=== PATIENT | male | born 1945 | race Caucasian/White ===

== ENCOUNTER → 2019-10-10 09:49 | Outpatient (BNVA) | payer BC, SELFPAY | PROVIDERS: Family Provider Family Medicine; PCP Nurse Practitioner Family; Visit Provider Urology | DX: N39.9 Disorder of urinary system, unspecified (principal); N52.1 Erectile dysfunction due to diseases classified elsewhere; N52.9 Male erectile dysfunction, unspecified; I10 Essential (primary) hypertension; E11.9 Type 2 diabetes mellitus without complications | CPT/HCPCS: 81001 ==

== ENCOUNTER → 2021-07-14 15:56 | Outpatient (BNVA) | payer MEDICARE, SELFPAY | PROVIDERS: PCP Family Medicine; Referring Provider Family Medicine; Visit Provider Podiatrist Foot & Ankle Surgery | DX: M79.671 Pain in right foot (principal); M19.071 Primary osteoarthritis, right ankle and foot | CPT/HCPCS: 73630 ==

== ENCOUNTER → 2021-12-20 13:28 | Outpatient (BNVA) | payer MEDICARE, SELFPAY | PROVIDERS: PCP Family Medicine; Visit Provider Podiatrist Foot & Ankle Surgery | DX: M79.671 Pain in right foot (principal); S90.31XA Contusion of right foot, initial encounter; E11.42 Type 2 diabetes mellitus with diabetic polyneuropathy; L60.3 Nail dystrophy; W20.8XXA Other cause of strike by thrown, projected or falling object, initial encounter | CPT/HCPCS: 73620; 99214 ==

== ENCOUNTER → 2022-02-01 15:16 | Outpatient (BNVA) | payer MEDICARE, SELFPAY | PROVIDERS: PCP Family Medicine; Visit Provider Podiatrist Foot & Ankle Surgery | DX: S90.31XD Contusion of right foot, subsequent encounter (principal); E11.42 Type 2 diabetes mellitus with diabetic polyneuropathy; L60.3 Nail dystrophy; Z79.84 Long term (current) use of oral hypoglycemic drugs; L03.039 Cellulitis of unspecified toe; Z79.4 Long term (current) use of insulin; X58.XXXD Exposure to other specified factors, subsequent encounter | CPT/HCPCS: 11730 ==

== ENCOUNTER → 2022-02-15 09:59 | Outpatient (BNVA) | payer MEDICARE, SELFPAY | PROVIDERS: PCP Family Medicine; Visit Provider Podiatrist Foot & Ankle Surgery | DX: E11.8 Type 2 diabetes mellitus with unspecified complications (principal); E11.42 Type 2 diabetes mellitus with diabetic polyneuropathy; L60.3 Nail dystrophy; L03.039 Cellulitis of unspecified toe; Z79.4 Long term (current) use of insulin; Z79.84 Long term (current) use of oral hypoglycemic drugs | CPT/HCPCS: 99214 ==

== ENCOUNTER → 2022-03-08 10:20 | Outpatient (BNVA) | payer MEDICARE, SELFPAY | PROVIDERS: PCP Family Medicine; Visit Provider Podiatrist Foot & Ankle Surgery | DX: L03.031 Cellulitis of right toe (principal); Z79.4 Long term (current) use of insulin; Z79.84 Long term (current) use of oral hypoglycemic drugs; E11.8 Type 2 diabetes mellitus with unspecified complications; E11.42 Type 2 diabetes mellitus with diabetic polyneuropathy; L60.3 Nail dystrophy | CPT/HCPCS: 99213 ==

== ENCOUNTER → 2022-07-26 15:21 | Outpatient (BNVA) | payer MEDICARE, SELFPAY | PROVIDERS: PCP Family Medicine; Visit Provider Podiatrist Foot & Ankle Surgery | DX: I73.9 Peripheral vascular disease, unspecified (principal); E11.42 Type 2 diabetes mellitus with diabetic polyneuropathy; E11.621 Type 2 diabetes mellitus with foot ulcer; L97.411 Non-pressure chronic ulcer of right heel and midfoot limited to breakdown of skin; Z79.4 Long term (current) use of insulin; Z79.84 Long term (current) use of oral hypoglycemic drugs | CPT/HCPCS: 73630; 99214 ==

== ENCOUNTER → 2022-09-07 14:02 | Outpatient (BNVA) | payer MEDICARE, SELFPAY | PROVIDERS: PCP Family Medicine; Visit Provider Podiatrist Foot & Ankle Surgery | DX: E11.621 Type 2 diabetes mellitus with foot ulcer (principal); Z79.84 Long term (current) use of oral hypoglycemic drugs; Z79.4 Long term (current) use of insulin; L97.411 Non-pressure chronic ulcer of right heel and midfoot limited to breakdown of skin; E11.42 Type 2 diabetes mellitus with diabetic polyneuropathy; M21.41 Flat foot [pes planus] (acquired), right foot; M21.42 Flat foot [pes planus] (acquired), left foot; M20.40 Other hammer toe(s) (acquired), unspecified foot | CPT/HCPCS: 99214 ==

== ENCOUNTER → 2022-09-09 13:05 | Outpatient (BNVA) | payer MEDICARE, SELFPAY | PROVIDERS: PCP Family Medicine; Visit Provider Thoracic Surgery (Cardiothoracic Vascular Surgery) | DX: I96 Gangrene, not elsewhere classified (principal); E11.621 Type 2 diabetes mellitus with foot ulcer; L97.512 Non-pressure chronic ulcer of other part of right foot with fat layer exposed | CPT/HCPCS: 99213 ==

== ENCOUNTER 2022-09-12 08:41 | Outpatient (CLI) | payer MEDICARE, SELFPAY ==
[2022-09-12] MEDS: iohexol 350 mg/mL 500 mL Btl (per mL) IV (08:55)
--- NOTE | 2022-09-12 09:00 | CT_ITS ---
WS: [id number] CTA ABDOMINAL AORTA WITH RUNOFF TECHNIQUE: Contrast enhanced CTA of the abdominal aorta with bilateral lower extremity runoff. Multip lanar reformatted images were obtained. MIP reformats were also reviewed. CLINICAL INFORMATION: S81.801A - Unspecified open wound, right lower leg, initi... COMPARISON: None. DLP: 608.[address] scans at [facility] use at least one of these dose optimization techniques: automated e xposure control; mA and/or kV adjustment per patient size (includes targeted exams where dose is matc hed to clinical indication); or iterative reconstruction. FINDINGS: Lung bases are well aerated. Normal caliber abdominal aorta. Moderate aortic calcified athe romatous disease. Celiac is patent. Moderate stenosis of the SMA origin which remains patent. Proxima l renal arteries are patent. Mild calcified ostial stenosis of the renal artery origins which remain patent. ARABELLA is patent. RIGHT: RIGHT common iliac artery is patent. Internal iliac artery is patent. External iliac and commo n femoral arteries are patent. Severe calcified stenosis at the SMA origin which remains patent. Deep femoral artery is patent. Superficial femoral artery is patent to the adductor hiatus. Mild to moder ate segmental stenosis in the popliteal artery which remains patent. Moderate to severe stenosis popl iteal artery pzluj-qgb-vnlo which remains patent. Severe stenosis popliteal artery just above the kne e which is nearly occluded. Short segment occlusion of the popliteal artery at the level of the knee joint. Densely calcified calf arteries with intermittent segmental flow. Short segment occlusion of t he peroneal artery at the origin. LEFT: LEFT common iliac artery is patent. Internal iliac artery is patent. External iliac artery carranza nt. Common femoral artery is patent. Superficial femoral and deep femoral arteries are patent. Superf icial femoral artery is patent to the adductor hiatus. Moderate to severe stenosis in the proximal po pliteal artery with dense calcification. Moderate segmental narrowing in the popliteal artery with se alyssa stenosis above the knee. Popliteal occlusion just above the knee. This is occluded at the knee j oint and remains occluded to the tibioperoneal trunk. No significant flow in the calf arteries. Normal liver. Normal caliber gallbladder. Normal GE junction. Adrenal glands are normal. Normal renal parenchymal enhancement. No hydronephrosis. Normal spleen. Enlarged prostate. Sigmoid diverticulosis . Normal appendix in the RIGHT lower quadrant. CT/CT angio abd aorta runof [id number] IMPRESSION: 1. RIGHT: Moderate to severe stenosis of the SFA origin which remains patent. Moderate to severe stenosis in the popliteal artery worse distally with occlusi on just above the knee and at the knee joint. This reconstitutes just below the knee with a densely calcified tiny calf arteries with segmental flow. 2. LEFT: Severe stenosis in the distal popliteal artery with occlusion just ab ove the knee and at the level of the knee joint. This remains occluded to the t ibioperoneal trunk with no significant flow in the LEFT calf arteries. 3. Normal caliber abdominal aorta. Celiac is patent. Moderate stenosis at the SMA origin which remains patent.
[2022-09-12 09:37] LABS: Blood Urea Nitrogen 19 mg/dL (8-23)
== END 2022-09-12 08:42 | disposition home or self-care (01) ==
PROVIDERS: PCP Family Medicine; Visit Provider Thoracic Surgery (Cardiothoracic Vascular Surgery)
DX: S81.801A Unspecified open wound, right lower leg, initial encounter (principal); I70.203 Unspecified atherosclerosis of native arteries of extremities, bilateral legs; X58.XXXA Exposure to other specified factors, initial encounter
CPT/HCPCS: 75635; 82565; 84520; Q9967

== ENCOUNTER → 2022-09-16 08:15 | Outpatient (BNVA) | payer MEDICARE, SELFPAY | PROVIDERS: PCP Family Medicine; Visit Provider Internal Medicine | DX: E11.621 Type 2 diabetes mellitus with foot ulcer (principal); L97.519 Non-pressure chronic ulcer of other part of right foot with unspecified severity; Z79.4 Long term (current) use of insulin; I73.9 Peripheral vascular disease, unspecified; I10 Essential (primary) hypertension; R58 Hemorrhage, not elsewhere classified; Z79.82 Long term (current) use of aspirin | CPT/HCPCS: 93005; 97597; 99204 ==

== ENCOUNTER → 2022-09-21 14:12 | Outpatient (BNVA) | payer MEDICARE, SELFPAY | PROVIDERS: PCP Family Medicine; Visit Provider Podiatrist Foot & Ankle Surgery | DX: E11.42 Type 2 diabetes mellitus with diabetic polyneuropathy (principal); M21.41 Flat foot [pes planus] (acquired), right foot; M21.42 Flat foot [pes planus] (acquired), left foot; M20.41 Other hammer toe(s) (acquired), right foot; E11.621 Type 2 diabetes mellitus with foot ulcer; L97.411 Non-pressure chronic ulcer of right heel and midfoot limited to breakdown of skin; L97.512 Non-pressure chronic ulcer of other part of right foot with fat layer exposed | CPT/HCPCS: 99213 ==

== ENCOUNTER → 2022-09-23 10:09 | Outpatient (BNVA) | payer MEDICARE, SELFPAY | PROVIDERS: PCP Family Medicine; Visit Provider Thoracic Surgery (Cardiothoracic Vascular Surgery) | DX: E11.621 Type 2 diabetes mellitus with foot ulcer (principal); L97.512 Non-pressure chronic ulcer of other part of right foot with fat layer exposed | CPT/HCPCS: 97597; A6212 ==

== ENCOUNTER → 2022-09-30 11:04 | Outpatient (BNVA) | payer MEDICARE, SELFPAY | PROVIDERS: PCP Family Medicine; Visit Provider Nurse Practitioner Family | DX: E11.621 Type 2 diabetes mellitus with foot ulcer (principal); L97.512 Non-pressure chronic ulcer of other part of right foot with fat layer exposed | CPT/HCPCS: 97597 ==

== ENCOUNTER 2022-10-03 07:11 | Outpatient (CLI) | payer MEDICARE, SELFPAY ==
[2022-09-30 10:40] LABS: Basophils % 0.3 %; Eosinophils # 0.1 10^3/uL (0.0-0.8); Eosinophils % 1.6 %; Hematocrit 40.1 % (42.0-52.0); Hemoglobin 13.5 g/dL (11.7-16.6); Lymphocytes # 1.2 10^3/uL (0.8-4.8); Lymphocytes % 18.8 %; Mean Corpuscular HGB Conc 33.7 g/dL (30.0-36.0); Mean Corpuscular Hemoglobin 29.7 pg (28.0-34.0); Mean Corpuscular Volume 88.1 fl (80-94); Mean Platelet Volume 10.5 fL (7.4-10.4); Monocytes # 0.5 10^3/uL (0.2-0.9); Monocytes % 7.8 %; Neutrophils # 4.51 10^3/uL (1.8-7.7); Neutrophils % 71.3 %; Nucleated Red Blood Cells % 0 %; Platelet Count 243 10^3/cmm (130-400); Red Blood Count 4.55 10^6/uL (4.1-5.3); Red Cell Distribution Width 12.8 % (12.1-15.1); White Blood Count 6.3 10^3/uL (4.0-10.0)
[2022-09-30 10:56] LABS: Blood Urea Nitrogen 26 mg/dL (8-23); Calcium 9.6 mg/dL (8.5-10.5); Carbon Dioxide 26 mmol/L (22-29); Chloride 96 mmol/L (98-107); Glucose 343 mg/dL (65-115); Osmolality Calculated 292 mOsm/kg (285-295); Sodium 132 mmol/L (136-145)
[2022-09-30 11:12] LABS: INR 0.99 (0.83-1.21); Prothrombin Time (Patient) 13.4 Seconds (12.0-15.1)
[2022-10-03] VITALS (12 sets, daily range): BP systolic 101–187; BP diastolic 69–90; PULSE 63–95; RESP 16–25; TEMP 36.9; O2SAT 90–96; BMI 25.4
--- NOTE | 2022-10-03 07:30 | XACV_ITS ---
Ht: 178 cm Wt: 80 kg BSA: 2.00 m2 Any Known Allergies: Other Gender: Male : 1945 Exam Type: Invasive Peripheral Vascular Procedure(s): Procedure Description: Peripheral Cath Diagnostic Procedure Procedure Description: Abdominal aortic angiography Procedure Description: Lower extremities' angiography Exam Priority: Routine Abdominal Diagnostic Findings Distal abdominal aorta: Patent. Lower Extremity Diagnostic Findings INDICATION: 77 year old male who has ulcer and right fourth web space,significant pain, BECKY of 0.2 patient is scheduled to undergo peripheral angiogram with attempted revascularization of right lower extremity. Right lower extremity findings: Right common iliac artery is patent. Right external iliac artery is patent. Right common femoral artery is patent. Right profunda artery is patent. Distal right SFA has severe 70 to 80% stenosis. Right popliteal artery is totally occluded with reconstitution with collateral blood flow. It is heavily calcified. Anterior tibial artery has diffuse disease and then is totally occluded. Posterior tibial artery and popliteal arteries occluded in mid calf region. On the collateral blood flow below.. Left lower extremity findings: Left common iliac artery is patent. Left external iliac artery is patent. The left common femoral artery is patent. Left profunda artery is patent. Distal left SFA has 80 to 90% calcified stenosis. Left popliteal artery is heavily calcified and has 90% stenosis. After that popliteal artery is totally blocked. Below the knee blood supply is only through collateral blood flow.. Lower Extremity Interventional Findings Procedure detail: We attempted to across total occluded popliteal artery with seeker support catheter and Glidewire. However after several attempts, it could not be crossed. At this time we aborted further attempts. Conclusions Totally occluded right popliteal artery s/p unsuccessful revascularization. Severe bilateral peripheral artery disease. Recommendations Medical therapy. Start Cilostazol. We will refer to vascular surgery to assess revascularization attempts. Hemodynamic Data Phase:Rest AO : 156.0 / 66.0 ( 104.0 ) @ 10:39:00 AM 164.0 / 60.0 ( 98.0 ) @ 10:46:00 AM Access Site Site: Right Femoral artery Sheath Size: 6 Fr Hemost... Method: Suture Hemost... Success: Successful Procedure Details Findings Procedure Consent Obtained. Admit Source: Out Patient. Pre-Procedure Time Out. Identified patient by full name and date of as verbalized by the patient/guarantor. Does the consent match the physician's order: Yes. Accurate & Complete Informed Consent: Yes. Inpatient/Outpatient History & Physical on Chart: Yes. If H&P is completed, is and addenduem needed: Yes; If yes, is the addendum complete: Yes. Visualize and Verify Site with Patient/Guarantor: N/A. Relevant Radiology Images available: No. The risks, benefits, and alternatives of sedation and/or procedure were discussed by physician. The patient agrees to continue. Procedure started. IV Site on Arrival: 18 gauge in the left anticubital. IV Fluids: 0.9% NaCl at 75ml/hr. 0 mL infused prior to greens laborer. Pre Procedural Pulses: bilateral radial was 2+. Pre Procedural Pulses: bilateral dorsalis pedis was 1+. Pre Procedural Pulses: bilateral posterior tibial was 1+. Oxygen started at 2liters/min via nasal canula. bilateral groins was prepped with chloroprep then draped in the usual sterile fashion. Physician notified. Baseline sample Acquired. HR: 58 BPM. Physician arrived. Physician scrubbed in. Time out performed with cath team. Lidocaine 1% infiltrated to the left groin. Arterial access obtained with micropuncture set. Hand injection of contrast through access needle. Wire and needle out, manual pressure. Ultrasound obtained to assist with arterial access. Arterial access obtained. Wire and needle out, manual pressure held. Ultrasound guided arterial access obtained with micropuncture set. A 5FrFr UF catheter in over wire. Abdominal aortogram performed in AP @ 10 mL/sec for a total of 30 mL. Glidewire in through UF catheter. Glidewire advanced to distal right SFA. 6fr sheath exchanged for 45cm 6fr flexor over the glidewire. Right common femoral selected and arteriogram with runoff performed @ 10 mL/sec for a total of 30 mL. Seeker catheter in over glidewire. Glidewire out. Seeker seated in distal SFA. Hand injection through seeker to visualize popliteal. 300cm Command Wire in through seeker catheter. Unable to cross lesion in popliteal. Command wire out. Glidewire in through seeker catheter. Unable to cross lesion in popliteal. Seeker and glidewire out. Right common femoral selected and arteriogram with runoff performed @ 10 mL/sec for a total of 30 mL. Standard wire in through sheath. 45cm 6fr flexor exchanged for 6fr short sheath over the standard wire. Sheath injected in Left common femoral artery and runoff performed @ 10mL/sec for a total of 30ml. A Suture was successful obtaining hemostatsis at the Right Femoral artery insertion site. Sheath(s) sutured into position with 2-0 silk and sterile 4x4's and Op-site applied over the site. No oozing or signs and symptoms of hematoma noted. Arterial sheath flushed and connected to tranducer and pressure bag with heparinized saline. Post Procedure: Pulses reassessed and unchanged. PERRLA. Strong, equal hand study specialist bilaterally. No VTE prophylaxis required. Post-op diagnosis: Total occlusion Right popliteal artery, unsuccessful revascularization attempt, severe PAD Left lower extremity. Complications: None. Estimated blood loss: 5mL-10mL. Medication's Wasted: Heparin = 1000 unit. Total IV fluids: 68 mL. Medication's Wasted: Lidocaine 1% = 1 mL. Responsiveness - Normal response to verbal stimuli; alert and oriented, PERRLA. Airway - Unaffected, no intervention required; spontaneous ventilation. Circulation: W/N/L, pulses unchanged. Nausea/Vomiting: No. Procedure completed. Patient transferred by bed to ICU. Vital chart was stopped. Procedure Medications Start: 9:21 AM Stop: 9:21 AM Medication: Versed Amount: 1 mg Route: I.V. Start: 9:21 AM Stop: 9:21 AM Medication: Fentanyl Amount: 50 mcg Route: I.V. Start: 9:53 AM Stop: 9:53 AM Medication: Versed Amount: 1 mg Route: I.V. Start: 9:53 AM Stop: 9:53 AM Medication: Fentanyl Amount: 50 mcg Route: I.V. I, the attending physician, have reviewed and verified all procedure medications. Yes, all medications given per verbal order History/Risk Factors Hypertension: Yes Dyslipidemia: Yes Peripheral Arterial Disease (PAD): No Obesity: No Renal Disease: No Tobacco Use: Never Prior Interventions PCI: No CABG: No Valve Surgery: No Report Signatures Finalized by Anthony Mathew MD on 10/17/2022 09:46 AM
[2022-10-03] MEDS: diphenhydrAMINE 50 mg Capsule PO (07:58)
[2022-10-03] MEDS: aspirin 325 mg Tablet PO (07:58)
[2022-10-03 08:19] LABS: Glucose Point of Care 247 mg/dL (70-110)
[2022-10-03 08:20] LABS: Basophils % 0.3 %; Eosinophils # 0.1 10^3/uL (0.0-0.8); Eosinophils % 2.3 %; Hematocrit 38.9 % (42.0-52.0); Lymphocytes # 1.3 10^3/uL (0.8-4.8); Lymphocytes % 21.8 %; Mean Corpuscular HGB Conc 33.4 g/dL (30.0-36.0); Mean Corpuscular Hemoglobin 29.6 pg (28.0-34.0); Mean Corpuscular Volume 88.6 fl (80-94); Mean Platelet Volume 10.7 fL (7.4-10.4); Monocytes # 0.6 10^3/uL (0.2-0.9); Monocytes % 10.6 %; Neutrophils # 3.89 10^3/uL (1.8-7.7); Neutrophils % 64.7 %; Nucleated Red Blood Cells % 0 %; Platelet Count 232 10^3/cmm (130-400); Red Blood Count 4.39 10^6/uL (4.1-5.3); Red Cell Distribution Width 12.7 % (12.1-15.1)
[2022-10-03 08:45] LABS: Anion Gap 13.9 (5-19); Blood Urea Nitrogen 28 mg/dL (8-23); Calcium 9.8 mg/dL (8.5-10.5); Carbon Dioxide 26 mmol/L (22-29); Chloride 99 mmol/L (98-107); Glucose 233 mg/dL (65-115); Osmolality Calculated 291 mOsm/kg (285-295); Potassium 4.9 mmol/L (3.5-5.1); Sodium 134 mmol/L (136-145)
--- NOTE | 2022-10-03 09:21 | W.PM.OPSUD ---
Surgery/Procedure H&P Update DATE OF PROCEDURE: October 03, 2022 DATE H&P PERFORMED: 09/16/22 H&P UPDATE INFORMATION: I have reviewed H&P completed within last 30 days, I have examined patient prior to procedure and No changes to prior documentation PREOP DIAGNOSIS: Foot ulcer/severe peripheral artery disease PRIMARY INDICATION FOR PROCEDURE: Foot ulcer/severe peripheral artery disease PLANNED PROCEDURE: Operation Date: 10/03/22 08:30 Proposed Procedures p Peripherial Angiogram 29658,M79.604, M79.605, I70.223, L97.519(Not Applicable) - Anthony Mathew M.D Possible percutaneous intervention PATIENT REASSESSED PRIOR TO SEDATION, WITH NO CHANGE NOTED: Yes PHYSICAL EXAM: alert, oriented x 3, clear to auscultation bilaterally and regular rate & rhythm AIRWAY EVAL/ANESTHESIA PLAN: normal airway, ASA III, Local Anesthesia, Risks, benefits & alternatives of sedation and/or procedure discussed and Patient agrees to continue as planned ADDITIONAL INFORMATION: Moderate sedation
--- NOTE | 2022-10-03 10:41 | PC.NURSE ---
Arrived from prestressed concrete laborer, Dr. Quijano at bedside, plan to D/C after sheath is out per protocol
--- NOTE | 2022-10-03 10:47 | PC.NURSE ---
Dr. Mathew noted absent to diminished pulses and coolness to Right foot, gave v.o. for Nitro paste 0.5 inch to right foot
[2022-10-03] MEDS: nitroglycerin 1 gm/inch oint Pkt 0.5 INCH TOPICAL (10:55)
[2022-10-03] MEDS: fentaNYL 50 mcg/mL INJ 2mL 25 MCG IVP (13:20)
[2022-10-03] MEDS: hyDRALAzine 20 mg/mL INJ 1 mL 5 MG IVP (14:06)
[2022-10-03] MEDS: lisinopril 10 mg Tablet PO (14:07)
[2022-10-03 17:23] LABS: Glucose Point of Care 233 mg/dL (70-110)
--- NOTE | 2022-10-03 17:27 | P.SS_ITS ---
Short Stay Summary Providers Date of Admit/Discharge: 10/05/22 Attending Provider: Anthony Matehw M.D Primary Care Provider: George David MD Chief Complaint: M79.604, M79.605, I70.223, L97.519 HPI History of Present Illness Damian Fonseca is a 77 year old male who has ulcer and right fourth web space,significant pain, BECKY of 0.2 patient is scheduled to undergo peripheral angiogram with attempted revascularization of right lower extremity. Review of Systems General: Reports: 10 or more systems reviewed and unremarkable except in HPI and below Const: Denies: fever(s) or chills Eyes: Denies: change in vision Card: Denies: chest pain or palpitations Resp: Denies: dyspnea or productive cough GI: Denies: abdominal pain, nausea or vomiting : Denies: flank pain Musc: Reports: extremity pain, extremity swelling, joint stiffness and deformity Skin/Breast: Reports: erythema, sores, changes in skin color, dry skin, nail changes and change in hair Neuro: Reports: numbness in extremities, sensory changes and difficulty walking Psych: Denies: suicidal ideation Endo: Denies: change in body appearance Marco Antonio/Lymph: Denies: tender lymph nodes Home Meds/Allergies Home Medications and Allergies Home Medications Medication Instructions Recorded Confirmed Type aspirin 81 mg tablet,delayed 81 mg PO DAILY 10/10/19 10/03/22 History release (Adult Aspirin Regimen) cholecalciferol (vitamin D3) 1,250 PO 10/10/19 09/21/22 History mcg (50,000 unit) capsule elderberry fruit 200 mg capsule mg PO 10/10/19 09/21/22 History gabapentin 100 mg capsule 100 mg PO DAILY 10/10/19 10/03/22 History glimepiride 4 mg tablet 8 mg PO DAILY 10/10/19 10/03/22 History lisinopril 10 mg tablet 10 mg PO BID 10/10/19 10/03/22 History magnesium 250 mg tablet 500 mg PO DAILY 10/10/19 10/03/22 History metformin 1,000 mg tablet 1,000 mg PO DAILY 10/10/19 10/03/22 History metformin 500 mg tablet 500 mg PO DAILY 10/10/19 10/03/22 History multivitamin,yk-bbsy-rwxapctj 1 tab PO DAILY 10/10/19 10/03/22 History (Complete Multivitamin tablet) omeprazole 20 mg capsule,delayed 20 mg PO DAILY 10/10/19 10/03/22 History release pioglitazone 15 mg tablet (Actos) 15 mg PO DAILY 10/10/19 10/03/22 History rosuvastatin 20 mg tablet 20 mg PO DAILY 10/10/19 10/03/22 History vitamin B complex (B 1 tab PO DAILY 10/10/19 10/03/22 History Complex-Vitamin B12 tablet) zinc ofcrkpj-umehfe-jjm cap PO 10/10/19 09/21/22 History bzssduxf-fmtzqsf-hek afr 15 mg-2 mg-160 mg cap acetaminophen 650 mg 650 mg PO Q8H PRN Pain 07/01/21 10/03/22 History tablet,extended release tramadol 50 mg tablet 50 mg PO DAILY 07/01/21 10/03/22 History insulin lispro 100 unit/mL 5 unit SUBCUT TID 08/03/21 10/03/22 History subcutaneous solution (Humalog U-100 Insulin) insulin detemir U-100 100 unit/mL 32 unit SUBCUT DAILY 10/03/22 10/03/22 History (3 mL) subcutaneous pen (Levemir FlexTouch U-100 Insulin) lysine 500 mg capsule 620 mg PO 1XD 10/03/22 10/03/22 History Allergies Allergy/AdvReac Type Severity Reaction Status Date / Time ibuprofen Allergy Hives Verified 10/03/22 08:48 Sulfa (Sulfonamide Allergy NA Verified 10/03/22 08:48 Antibiotics) PFSH Acute PFSH: Medical History Diabetes Erectile dysfunction H/O fracture of tibia Hyperlipidemia Hypertension Surgical History H/O knee surgery S/P tonsillectomy Family History Mother , 72 Diabetes Father , 68 Stroke Social History Smoking and tobacco status: never smoked Alcohol intake: never Substance/Drug Use: never Marital status: Current occupational status: retired Vitals/I&O/Wt Last Vital Signs Temp 98.5 F 10/03/22 09:11 Pulse 72 10/03/22 17:00 Resp 19 H 10/03/22 17:00 BP 178/76 10/03/22 17:00 Pulse Ox 95 10/03/22 17:00 O2 Del Method Room Air 10/03/22 09:11 Weight last 48 hrs Weight 177 lb Physical Exam Narrative: GENERAL: Patient is alert, awake and oriented x3. [] NECK: No jugular vein distension. [] HEENT: No cyanosis. No icterus. No pallor. [] HEART: Regular S1 and S2. No murmur, rub or gallop. [] LUNGS: Clear to auscultate bilaterally. [] CENTRAL NERVOUS SYSTEM: Grossly nonfocal. [] EXTREMITIES: Lower extremities with no edema, pulses very difficult to palpate Hospital Course Hospital Course Peripheral angiogram showed perfusion of the popliteal artery with fairly heavy calcification. Collateral flow was noted below the knee. No significant flow was noted below mid calf. Only small sized collaterals seen. Attempt at revascularization of the right popliteal artery was unsuccessful. Patient was observed after sheath pull of the left common femoral artery sheath. No bleeding was noted. He had on and off right leg pain which is baseline according to him and the family. Leg and foot was warm. Pain medications were used to control the discomfort. I had a discussion with Dr. Crews,our cardio vascular surgeon who knows patient well from wound care clinic regarding any surgical options. However he felt as patient's wound is improving, and with poor outflow at foot with very limited blood flow, medical therapy is appropriate at this time and he will talk to patient as outpatient. Patient and family in agreement. They will discuss it further with Dr Crews when they see him in wound care clinic. We started patient on Cilostazol. Patient was discharged in a stable condition. SSS Data Data Completed and Pending: Pending at discharge Category Date Time Status CONCESSION STAND ATTENDANT request for service Routin e Exams 10/03/22 07:30 Taken Discharge Plan Discharge Patient Disposition: Home Prescriptions: Continued tramadol 50 mg tablet 50 mg PO DAILY acetaminophen 650 mg tablet extended release 650 mg PO Q8H PRN (Reason: Pain) pioglitazone [Actos] 15 mg tablet 15 mg PO DAILY lisinopril 10 mg tablet 10 mg PO BID gabapentin 100 mg capsule 100 mg PO DAILY rosuvastatin 20 mg tablet 20 mg PO DAILY aspirin [Adult Aspirin Regimen] 81 mg tablet,delayed release (DR/EC) 81 mg PO DAILY glimepiride 4 mg tablet 8 mg PO DAILY omeprazole 20 mg capsule,delayed release(DR/EC) 20 mg PO DAILY magnesium 250 mg tablet 500 mg PO DAILY zinc ikn-fukgfi-isk palm-gnsg 15-2-160 mg capsule PO cholecalciferol (vitamin D3) 1,250 mcg (50,000 unit) capsule PO Complete Multivitamin Tablet 1 tab PO DAILY elderberry fruit 200 mg capsule PO vitamin B complex [B Complex-Vitamin B12] Tablet 1 tab PO DAILY sildenafil 100 mg tablet 100 mg PO DAILY PRN (Reason: sexual activity) Qty: 20 12RF Rx Instructions: 1 hour before intercourse on empty stomach. NO NITROGLYCERIN! insulin lispro [Humalog U-100 Insulin] 100 unit/mL solution 5 unit SUBCUT TID acetaminophen-codeine 300-30 mg tablet 1 tab PO Q8H PRN (Reason: pain) 7 Days Qty: 21 0RF mupirocin 2 % ointment 1 applic topical TID Qty: 22 0RF Amitriptyline 4%/Baclofen 2%/Diclofenac 10%/Gabapentin 6%/Lidocaine 5% cream 1.5 ml topical DAILY PRN (Reason: Foot Pain) Qty: 120 2RF Rx Instructions: Apply 1.5ml's ( 3 pumps ) To Focal points of pain on right foot 3 to 4 times daily as needed. (DME) Diabetic Shoes with 3 sets of Custom Inserts See Rx Instructions .Route .MEDSUPPLY Qty: 1 0RF Rx Instructions: As directed HOME Levemir FlexTouch U-100 Insuln 100 unit/mL (3 mL) insulin pen 32 unit SUBCUT DAILY lysine 500 mg Capsule 620 mg PO 1XD Held metformin 1,000 mg tablet 1,000 mg PO DAILY Hold Instructions: Resume on 10/05/22. metformin 500 mg tablet 500 mg PO DAILY Hold Instructions: Resume on 10/05/22. No Action cilostazol 50 mg tablet 50 mg PO BID Qty: 180 0RF Discharge Orders: Discharge Order (Routine); Ordered 10/03/22 Ordered By: Anthony Mathew Referrals: Kathy Braxton FNP [Nurse Practitioner] - 4-7 days Diet: Diabetic Activity: Increase activity as tolerated Patient Instructions: Tramadol (By mouth), Cilostazol (By mouth), Peripheral Vascular Angioplasty (DC), Opioid Safety Discharge Date/Time: 10/03/22 21:17 Attestations Medical Necessity Statement*: Care not expected to cross 2 midnights. Time Spent in Patient Care*: greater than 30 min Quality Metrics Clinical Quality Measures: [ No reported AMI, CVA or VTE this stay ] Coding Level of Care Code Acute Code for Chg Fwd Diagnoses
--- NOTE | 2022-10-03 18:44 | PC.NURSE ---
All D/C instructions educated to patient and , patient signed D/C form
--- NOTE | 2022-10-03 21:17 | PC.NURSE ---
Discharge Note: R. Groin site intact, no hemotoma felt, skin is cool and dry. Unable to palpate, pulses doppled; not a new finding, doctors aware. Pt walked around the unit 1 hour prior to d/c. Vital signs stable. Belongings with pt include clothing, phone, and wallet. Pt was escorted to personal vehicle by RN via wheelchair.
== END 2022-10-03 21:17 | disposition home or self-care (01) ==
LOC: CCL 07:12 → ICU 13:47
PROVIDERS: Absent Provider Thoracic Surgery (Cardiothoracic Vascular Surgery); PCP Family Medicine; Visit Provider Internal Medicine
DX: I70.223 Atherosclerosis of native arteries of extremities with rest pain, bilateral legs (principal); E11.621 Type 2 diabetes mellitus with foot ulcer; L97.519 Non-pressure chronic ulcer of other part of right foot with unspecified severity; E78.5 Hyperlipidemia, unspecified; I10 Essential (primary) hypertension; Z79.82 Long term (current) use of aspirin; Z79.84 Long term (current) use of oral hypoglycemic drugs; Z79.4 Long term (current) use of insulin; Z87.891 Personal history of nicotine dependence
CPT/HCPCS: 36415; 36416; 75625; 75716; 80048; 82962; 85025; 85610; 96365; 99152; 99153; C1769; C1887; C1894; J0360; J1644; J2250; J3010; J7030; Q0163; Q9967

== ENCOUNTER → 2022-10-07 09:06 | Outpatient (BNVA) | payer MEDICARE, SELFPAY | PROVIDERS: PCP Family Medicine; Visit Provider Nurse Practitioner Family | DX: E11.621 Type 2 diabetes mellitus with foot ulcer (principal); L97.512 Non-pressure chronic ulcer of other part of right foot with fat layer exposed | CPT/HCPCS: 97597 ==

== ENCOUNTER → 2022-10-11 15:16 | Outpatient (BNVA) | payer MEDICARE, SELFPAY | PROVIDERS: PCP Family Medicine; Visit Provider Nurse Practitioner Family | DX: I73.9 Peripheral vascular disease, unspecified (principal) | CPT/HCPCS: 80048; 99214 ==

== ENCOUNTER → 2022-10-14 08:47 | Outpatient (BNVA) | payer MEDICARE, SELFPAY | PROVIDERS: PCP Family Medicine; Visit Provider Thoracic Surgery (Cardiothoracic Vascular Surgery) | DX: Z09 Encounter for follow-up examination after completed treatment for conditions other than malignant neoplasm (principal); Z86.31 Personal history of diabetic foot ulcer | CPT/HCPCS: 99212; A6210 ==

== ENCOUNTER → 2022-10-26 10:39 | Outpatient (BNVA) | payer MEDICARE, SELFPAY | PROVIDERS: PCP Family Medicine; Visit Provider Thoracic Surgery (Cardiothoracic Vascular Surgery) | DX: I96 Gangrene, not elsewhere classified (principal); E11.621 Type 2 diabetes mellitus with foot ulcer; L97.512 Non-pressure chronic ulcer of other part of right foot with fat layer exposed | CPT/HCPCS: 99213 ==

== ENCOUNTER → 2022-11-02 14:24 | Outpatient (BNVA) | payer MEDICARE, SELFPAY | PROVIDERS: PCP Family Medicine; Visit Provider Thoracic Surgery (Cardiothoracic Vascular Surgery) | DX: I96 Gangrene, not elsewhere classified (principal); E11.621 Type 2 diabetes mellitus with foot ulcer; L97.512 Non-pressure chronic ulcer of other part of right foot with fat layer exposed | CPT/HCPCS: 99213 ==

== ENCOUNTER → 2022-11-08 16:16 | Outpatient (BNVA) | payer MEDICARE, SELFPAY | PROVIDERS: PCP Family Medicine; Visit Provider Nurse Practitioner Family | DX: R06.00 Dyspnea, unspecified (principal) | CPT/HCPCS: 71046 ==

== ENCOUNTER → 2022-11-09 10:46 | Outpatient (BNVA) | payer MEDICARE, SELFPAY | PROVIDERS: PCP Family Medicine; Visit Provider Thoracic Surgery (Cardiothoracic Vascular Surgery) | DX: I96 Gangrene, not elsewhere classified (principal); E11.621 Type 2 diabetes mellitus with foot ulcer; L97.512 Non-pressure chronic ulcer of other part of right foot with fat layer exposed | CPT/HCPCS: 97597 ==

== ENCOUNTER → 2022-11-16 12:58 | Outpatient (BNVA) | payer MEDICARE, SELFPAY | PROVIDERS: PCP Family Medicine; Visit Provider Thoracic Surgery (Cardiothoracic Vascular Surgery) | DX: E11.52 Type 2 diabetes mellitus with diabetic peripheral angiopathy with gangrene (principal); L97.512 Non-pressure chronic ulcer of other part of right foot with fat layer exposed | CPT/HCPCS: 97597 ==

== ENCOUNTER → 2022-11-22 11:28 | Outpatient (BNVA) | payer MEDICARE, SELFPAY | PROVIDERS: PCP Family Medicine; Visit Provider Podiatrist Foot & Ankle Surgery | DX: I73.9 Peripheral vascular disease, unspecified (principal); L60.3 Nail dystrophy; E11.621 Type 2 diabetes mellitus with foot ulcer; E11.42 Type 2 diabetes mellitus with diabetic polyneuropathy; M21.41 Flat foot [pes planus] (acquired), right foot; M21.42 Flat foot [pes planus] (acquired), left foot; M20.41 Other hammer toe(s) (acquired), right foot; M20.42 Other hammer toe(s) (acquired), left foot; Z79.84 Long term (current) use of oral hypoglycemic drugs; Z79.4 Long term (current) use of insulin; L97.411 Non-pressure chronic ulcer of right heel and midfoot limited to breakdown of skin | CPT/HCPCS: 11721; 73630; 99213 ==

== ENCOUNTER → 2022-11-23 10:00 | Outpatient (BNVA) | payer MEDICARE, SELFPAY | PROVIDERS: PCP Family Medicine; Visit Provider Thoracic Surgery (Cardiothoracic Vascular Surgery) | DX: E11.52 Type 2 diabetes mellitus with diabetic peripheral angiopathy with gangrene (principal); L97.512 Non-pressure chronic ulcer of other part of right foot with fat layer exposed | CPT/HCPCS: 97597 ==

== ENCOUNTER → 2022-12-02 14:36 | Outpatient (BNVA) | payer MEDICARE, SELFPAY | PROVIDERS: PCP Family Medicine; Visit Provider Thoracic Surgery (Cardiothoracic Vascular Surgery) | DX: E11.52 Type 2 diabetes mellitus with diabetic peripheral angiopathy with gangrene (principal); L97.512 Non-pressure chronic ulcer of other part of right foot with fat layer exposed | CPT/HCPCS: 97597 ==

== ENCOUNTER → 2022-12-09 13:52 | Outpatient (BNVA) | payer MEDICARE, SELFPAY | PROVIDERS: PCP Family Medicine; Visit Provider Thoracic Surgery (Cardiothoracic Vascular Surgery) | DX: E11.52 Type 2 diabetes mellitus with diabetic peripheral angiopathy with gangrene (principal); L97.512 Non-pressure chronic ulcer of other part of right foot with fat layer exposed | CPT/HCPCS: 99212; A6210 ==

== ENCOUNTER → 2023-01-30 08:42 | Outpatient (BNVA) | payer MEDICARE, SELFPAY | PROVIDERS: PCP Family Medicine; Visit Provider Podiatrist Foot & Ankle Surgery | DX: E11.42 Type 2 diabetes mellitus with diabetic polyneuropathy (principal); M21.41 Flat foot [pes planus] (acquired), right foot; M21.42 Flat foot [pes planus] (acquired), left foot; M20.41 Other hammer toe(s) (acquired), right foot; M20.42 Other hammer toe(s) (acquired), left foot; L60.3 Nail dystrophy; I73.9 Peripheral vascular disease, unspecified; Z79.4 Long term (current) use of insulin; Z79.84 Long term (current) use of oral hypoglycemic drugs | CPT/HCPCS: 11721 ==

== ENCOUNTER → 2023-04-03 08:59 | Outpatient (BNVA) | payer MEDICARE, SELFPAY | PROVIDERS: PCP Family Medicine; Visit Provider Podiatrist Foot & Ankle Surgery | DX: E11.8 Type 2 diabetes mellitus with unspecified complications (principal); E11.42 Type 2 diabetes mellitus with diabetic polyneuropathy; M21.41 Flat foot [pes planus] (acquired), right foot; M21.42 Flat foot [pes planus] (acquired), left foot; M20.41 Other hammer toe(s) (acquired), right foot; M20.42 Other hammer toe(s) (acquired), left foot; L60.3 Nail dystrophy; I73.9 Peripheral vascular disease, unspecified; Z79.4 Long term (current) use of insulin; Z79.84 Long term (current) use of oral hypoglycemic drugs | CPT/HCPCS: 11721 ==

== ENCOUNTER → 2023-07-18 08:35 | Outpatient (BNVA) | payer MEDICARE, SELFPAY | PROVIDERS: PCP Family Medicine; Visit Provider Podiatrist Foot & Ankle Surgery | DX: E11.42 Type 2 diabetes mellitus with diabetic polyneuropathy (principal); M21.41 Flat foot [pes planus] (acquired), right foot; M21.42 Flat foot [pes planus] (acquired), left foot; L60.3 Nail dystrophy; I73.9 Peripheral vascular disease, unspecified; Z79.84 Long term (current) use of oral hypoglycemic drugs; Z79.4 Long term (current) use of insulin | CPT/HCPCS: 11721 ==

== ENCOUNTER → 2023-10-17 09:18 | Outpatient (BNVA) | payer MEDICARE, SELFPAY | PROVIDERS: PCP Family Medicine; Visit Provider Podiatrist Foot & Ankle Surgery | DX: E11.42 Type 2 diabetes mellitus with diabetic polyneuropathy (principal); L60.3 Nail dystrophy; I73.9 Peripheral vascular disease, unspecified; Z79.84 Long term (current) use of oral hypoglycemic drugs; Z79.4 Long term (current) use of insulin | CPT/HCPCS: 11721 ==

== ENCOUNTER → 2024-01-16 08:55 | Outpatient (BNVA) | payer MEDICARE, SELFPAY | PROVIDERS: PCP Family Medicine; Visit Provider Podiatrist Foot & Ankle Surgery | DX: E11.42 Type 2 diabetes mellitus with diabetic polyneuropathy (principal); L60.3 Nail dystrophy; I73.9 Peripheral vascular disease, unspecified; Z79.4 Long term (current) use of insulin; Z79.84 Long term (current) use of oral hypoglycemic drugs | CPT/HCPCS: 11721 ==

== ENCOUNTER 2024-02-09 09:34 | Outpatient (CLI) | payer MEDICARE, SELFPAY ==
--- NOTE | 2024-02-09 09:40 | CT_ITS ---
WS: [id number] CT CHEST ANGIOGRAPHY WITH REFORMATS HISTORY: ELEVATED D DIMER/DYSPNEA/CHEST PAIN TECHNIQUE: Contiguous axial images are obtained through the chest during arterial injection of intrav enous contrast. Images are reconstructed to evaluate the pulmonary arteries. MIP imaging also reviewe d. All CT scans at [facility] use at least one of these dose optimization techniques: automat ed exposure control; mA and/or kV adjustment per patient size (includes targeted exams where dose is matched to clinical indication); or iterative reconstruction. CONTRAST: Omnipaque 350; 85 mL IV. DLP: 425.31 mGy.cm COMPARISON: None available. Very good opacification of the pulmonary arteries. No pulmonary emboli are identified. There is no ce ntral emboli. No enlargement of the pulmonary artery or RIGHT heart strain. Moderate plaque and ather osclerotic changes throughout the thoracic aorta stent. Atherosclerotic plaque extends into the proxi mal great vessels. Heart is very slightly enlarged. No pericardial effusion. There are small bilatera l pleural effusions. There is also bilateral mild bronchial thickening in the lower lobes. No pneumon ia. No pneumothorax. There are several mediastinal and hilar lymph nodes. Number of lymph nodes is increased and there are a few lymph nodes which are enlarged. Subcarinal lymph node measures up to 2.0 cm. Small hiatal hernia. Hepatic steatosis. Visualized adrenal glands are negative but have not been comp letely included. Very mild thoracic spondylosis. No destructive bone lesions are identified. CT/CT angio chest PE protcl [id number] IMPRESSION: 1. No pulmonary embolism. 2. Very small bilateral pleural effusions. 3. Bilateral lower lobe bronchial thickening. No pneumonia. 4. Moderate atherosclerosis thoracic aorta. No aneurysm. 5. Mild LEFT heart enlargement. 6. Mediastinal and hilar lymph nodes are increased in number and a few lymph n odes have increased in size. Consider reactive lymphadenopathy.
[2024-02-09 10:20] LABS: Blood Urea Nitrogen 25 mg/dL (8-23); Creatinine Clr Calc Pharmacy 48
[2024-02-09] MEDS: iohexol 350 mg/mL 500 mL Btl (per mL) IV (10:35)
== END 2024-02-09 09:35 | disposition home or self-care (01) ==
LOC: RAD 09:37
PROVIDERS: PCP Family Medicine; Visit Provider Family Medicine
DX: R79.1 Abnormal coagulation profile (principal); R06.00 Dyspnea, unspecified; J98.09 Other diseases of bronchus, not elsewhere classified; I70.0 Atherosclerosis of aorta; K76.0 Fatty (change of) liver, not elsewhere classified; R59.0 Localized enlarged lymph nodes
CPT/HCPCS: 71275; 82565; 84520

== ENCOUNTER → 2024-02-21 13:45 | Outpatient (BNVA) | payer MEDICARE, SELFPAY | PROVIDERS: PCP Family Medicine; Visit Provider Internal Medicine | DX: R07.9 Chest pain, unspecified (principal); I73.9 Peripheral vascular disease, unspecified; I10 Essential (primary) hypertension; E11.9 Type 2 diabetes mellitus without complications; R06.09 Other forms of dyspnea; Z87.891 Personal history of nicotine dependence | CPT/HCPCS: 93005; 99214 ==

== ENCOUNTER 2024-03-14 12:15 | Outpatient (CLI) | payer MEDICARE, SELFPAY ==
--- NOTE | 2024-03-14 12:05 | USCV_ITS ---
Damian Fonseca Age: 79 Gender: M : 1945 Exam Date: 03/14/2024 12:24 Ordering Phys: George David MD Technologist: ANTWAN Exam Location: [facility] [place] Indication: NSTEMI BP: 145 / 89 HR: 60 Rhythm: Sinus Technical Quality: Adequate MEASUREMENTS (Male / Female) Normal Values 2D ECHO LV Diastolic Diameter PLAX 5.0 cm 4.2 - 5.9 / 3.9 - 5.3 cm IVS Diastolic Thickness 1.0 cm 0.6 - 1.0 / 0.6 - 0.9 cm IVS Systolic Thickness 2.0 cm LVPW Diastolic Thickness 1.5 cm 0.6 - 1.0 / 0.6 - 0.9 cm LVPW Systolic Thickness 2.3 cm LVOT Diameter 2.0 cm LV Ejection Fraction 2D Teich 66.3 % LV Ejection Fraction MOD 4C 60.6 % LV Ejection Fraction MOD 2C 70.9 % LV Ejection Fraction 2C AL 72.4 % LA Diameter 3.6 cm RA Systolic Volume 4C AL 33.1 ml RA Systolic Volume 4C MOD 32.1 ml LA Sys Volume AL 34.2 cm cubed LA Sys Volume Index AL 16.6 cm cubed/m squared Aorta at Sinotubular Diameter 2.1 cm IVC Diameter 2.0 cm M-MODE LA Ao Ratio MM 1.0 AV Cusp Separation MM 1.6 cm DOPPLER AV Peak Velocity 134.0 cm/s LVOT Peak Velocity 107.0 cm/s AV Area Cont Eq vti 2.7 cm squared AV Area Cont Eq pk 2.6 cm squared MV Peak Velocity 104.0 cm/s MV Area PHT 2.7 cm squared Mitral E to A Ratio 0.9 TR Peak Velocity 137.0 cm/s TR Peak Gradient 7.5 mmHg TR Mean Velocity 104.0 cm/s TR Mean Gradient 4.8 mmHg TR Velocity Time Integral 36.5 cm TV Peak E Velocity 42.0 cm/s Right Atrial Pressure 3.0 mmHg Pulmonary Artery Systolic Pressu 10.5 mmHg PV Peak Velocity 97.0 cm/s RV Ejection Time 0.3 s FINDINGS Left Ventricle Normal left ventricular size and systolic function, EF 72%.no regional wall motion abnormalities. Grade I/IV diastolic dysfunction (abnormal relaxation filling pattern), normal to mildly elevated filling pressures. Right Ventricle The right ventricle is normal in size and function. Right Atrium The right atrium is normal in size. Left Atrium The left atrium is normal in size. Mitral Valve No gross abnormalities noted Aortic Valve No gross abnormalities noted Tricuspid Valve No gross abnormalities noted Pulmonic Valve Pulmonic valve not well visualized. Pericardium Normal pericardium without effusion. Aorta Normal ascending aorta dimension. IVC The inferior vena cava appears normal. CONCLUSIONS Normal left ventricular size and systolic function, EF 72%.no regional wall motion abnormalities. Grade I/IV diastolic dysfunction (abnormal relaxation filling pattern), normal to mildly elevated filling pressures. No significant valvular abnormalities Normal cardiac chamber sizes. There is no pericardial effusion. There are no intracardiac masses. No similar previous studies are available for comparison Dr Mariusz Ovalles MD FAC (Electronically Signed) Final Date: 15 March 2024 13:09 S
== END 2024-03-14 12:16 | disposition home or self-care (01) ==
PROVIDERS: PCP Family Medicine; Visit Provider Family Medicine
DX: I21.4 Non-ST elevation (NSTEMI) myocardial infarction (principal); I50.30 Unspecified diastolic (congestive) heart failure
CPT/HCPCS: 93306

== ENCOUNTER 2024-04-01 10:24 | Outpatient (CLI) | payer MEDICARE, SELFPAY ==
--- NOTE | 2024-04-01 | ECG_ITS ---
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 Interpretive Statements LEXISCAN SESTAMIBI STRESS TEST Procedure: At the baseline, the blood pressure was 142/81 mmHg with a heart rate of 62 bpm. The electrocardiogram showed normal sinus rhythm, normal axis with normal ST and T's. The Lexiscan was infused over a period of 20 seconds. A total of 0.4 mg of Lexiscan was infused. The stress phase was continued for a total of 5 minutes. Heart rate was at the end of stress phase was 71 bpm and a blood pressure of 123/90 mmHg. The EKG at the peak infusion revealed normal sinus rhythm with no significant ST-T wave changes. Sestamibi was injected 20 seconds after the Lexiscan infusion. Blood pressure at the end of recovery phase was 128/69 mmHg with a heart rate of 71 bpm. Conclusion: 1. Normal EKG response to Lexiscan infusion 2. No Lexiscan induced chest pain or cardiac arrhythmia. 3. Normal blood pressure and heart rate response. 4. Sestamibi/sestamibi perfusion scan pending; see separate report. Electronically Signed On 05-08-2024 18:37:21 STRUCTURES ASSEMBLER by Anthony Mathew M.D. [email or web address]
[2024-04-01 11:12] VITALS: BMI 26.5
--- NOTE | 2024-04-01 11:13 | NMCV_ITS ---
NM walker perf SPECT r/s* [id number] Damian Fonseca Age: 79 Gender: M : 1945 Exam Date: 04/01/2024 11:14 Ordering Phys: Anthony Mathew M.D ([email or web address]) Technologist: WENDI Lantigua Exam Location: [facility] Indications: CP, SOB STRESS TEST Please [facility] for [facility] findings IMAGE PROTOCOL Rest/Stress 1 Lexiscan Day Radiopharmaceutical Dose (mCi) Administration Site Administered by Rest: Tc-99m 9.1 IV WENDI Lantigua Sestamibi Stress:Tc-99m 26.1 IV WENDI Lantigua Sestamibi Rest: 01-Apr-2024 60 Discovery 630 Stress: 01-Apr-2024 30 Discovery 630 0.4mg Lexiscan. Images obtained in supine and prone position. SPECT RESULTS Technical Quality: Good Raw Data Analysis: Subdiaphragmatic activity Image Corrections: Took delayed images to try to improve quality to no avail. Summed Stress Score: 20 Summed Rest Score: 13 Summed Difference Score: 9 PERFUSION FINDINGS Large area of fixed perfusion fat noted in basal to distal inferior inferoseptal and inferolateral wall on both stress and rest images suggestive of old myocardial infarction versus scarring. FUNCTIONAL RESULTS (calculated via Gated SPECT) Stress Image LV EF (%): 42 Stress EDV (mL):131 TID: 1.21 Stress ESV (mL):76 FUNCTIONAL FINDINGS: Moderately depressed left ventricle ejection fraction, inferior and inferolateral wall akinesis.TID ratio is elevated which could be secondary to left ventricle hypertrophy/endocardial ischemia, cannot rule out multivessel coronary artery disease. IMPRESSIONS Large area of old myocardial infarction versus scarring noted in basal to distal inferior, inferoseptal and inferolateral wall without roshni-infarct ischemia. EKG segment will be documented separately. Keila Rosado MD (Electronically Signed) Final Date: 01 April 2024 14:26 S
[2024-04-01] MEDS: regadenoson 0.4 Mg/5 ml Syringe IVP (12:39)
[2024-04-01 12:45] VITALS: BP 128/69; PULSE 72
== END 2024-04-01 10:25 | disposition home or self-care (01) ==
PROVIDERS: PCP Family Medicine; Visit Provider Internal Medicine
DX: R07.9 Chest pain, unspecified (principal); R06.02 Shortness of breath; R94.39 Abnormal result of other cardiovascular function study
CPT/HCPCS: 36415; 78452; 93017; 96375; A9500; J2785

== ENCOUNTER → 2024-04-03 13:09 | Outpatient (BNVA) | payer MEDICARE, SELFPAY | PROVIDERS: PCP Family Medicine; Referring Provider Family Medicine; Visit Provider Internal Medicine Cardiovascular Disease | DX: E11.51 Type 2 diabetes mellitus with diabetic peripheral angiopathy without gangrene (principal); Z79.4 Long term (current) use of insulin; Z87.891 Personal history of nicotine dependence | CPT/HCPCS: 99214 ==

== ENCOUNTER → 2024-04-16 07:40 | Outpatient (BNVA) | payer MEDICARE, SELFPAY | PROVIDERS: PCP Family Medicine; Visit Provider Podiatrist Foot & Ankle Surgery | DX: E11.42 Type 2 diabetes mellitus with diabetic polyneuropathy (principal); I73.9 Peripheral vascular disease, unspecified; L97.521 Non-pressure chronic ulcer of other part of left foot limited to breakdown of skin; E11.621 Type 2 diabetes mellitus with foot ulcer; Z79.4 Long term (current) use of insulin | CPT/HCPCS: 99213 ==

== ENCOUNTER → 2024-07-16 07:37 | Outpatient (BNVA) | payer MEDICARE, SELFPAY | PROVIDERS: PCP Family Medicine; Visit Provider Podiatrist Foot & Ankle Surgery | DX: E11.42 Type 2 diabetes mellitus with diabetic polyneuropathy (principal); L60.3 Nail dystrophy; I73.9 Peripheral vascular disease, unspecified; Z79.4 Long term (current) use of insulin | CPT/HCPCS: 11721 ==

== ENCOUNTER 2024-10-09 11:22 | Emergency (ER) | payer MEDICARE, SELFPAY ==
[2024-10-09 11:27] VITALS: BP 99/63; PULSE 66; RESP 18; TEMP 36.6; O2SAT 97; BMI 26.5
[2024-10-09 11:38] VITALS: BP 143/73; PULSE 65; O2SAT 99
--- NOTE | 2024-10-09 11:39 | CT_ITS ---
WS: [id number] CT HEAD TECHNIQUE: Noncontrast CT of the head obtained from the skullbase to the vertex. CLINICAL INFORMATION: stroke: LKW 2 wks ago COMPARISON: None. DLP: 1035.[address] scans at [facility] use at least one of these dose optimization techniques: automated exposure control; mA and/or kV adjustment per patient size (includes targeted exams where dose is matched to clinical indication); or iterative reconstruction. FINDINGS: No evidence of intracranial hemorrhage or mass effect. Ventricular system and basal cisterns are patent. Mild small vessel changes with moderate parenchymal volume loss. No extra-axial fluid collections. No evidence of mass or mass effect. Vascular calcification. Tiny chronic lacunar infarct RIGHT cerebellum. Paranasal sinuses and mastoid air cells are well aerated. .Normal visualized soft tissues. CT/CT head wo con* [id number] IMPRESSION: 1. No evidence of intracranial hemorrhage or mass effect. 2. No acute intracranial findings.
--- NOTE | 2024-10-09 11:41 | ECG_ITS ---
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 Measurements Intervals [place] Rate: 60 P: 0 WV: 0 QRS: 62 QRSD: 104 T: 75 QT: 414 QTc: 416 Interpretive Statements SUPRAVENTRICULAR RHYTHM ABNORMAL RHYTHM ECG Compared to ECG 02/21/2024 14:45:34 Supraventricular rhythm now present Sinus rhythm no longer present T-wave abnormality no longer present Possible ischemia no longer present Poor R-wave progression no longer present Electronically Signed On 10-09-2024 17:41:07 CDT by Mariusz Ovalles M.D. [email or web address]
--- NOTE | 2024-10-09 11:46 | W.ED.WEAKNES ---
HPI - Weakness General: Chief complaint: Weakness Stated complaint: dr hylton sent, previous stroke Time Seen by Provider: 10/09/24 11:38 History of Present Illness: 79-year-old male presents emergency room sent in by his primary care doctor for possible stroke. Last known well was 14 days ago. Symptoms began on September 19 states he woke up and thinks his did not feel right he felt like he was off balance. Difficulty writing his name had slurred speech difficulty walking generalized weakness. He has previously had his stroke in the past. He went to see his primary care doctor directed to the emergency room he also has a new murmur according to his primary care doctor that has not previously been documented. He is not on any anticoagulants he is on clopidogrel but no aspirin he is on high-dose statin. Patient is diabetic and has a history of hypertension. Has significant peripheral vascular disease as well. Associated symptoms: Denies chest pain, chills, dysuria or fever(s) Review of Systems Const: Denies: fever(s) or chills Card: Denies: chest pain Resp: Denies: dyspnea GI: Denies: abdominal pain : Denies: dysuria, urinary frequency or urinary urgency Musc: Denies: neck pain or back pain Skin/Breast: Denies: rash PFSH ED PFSH: Medical History H/O fracture of tibia Hyperlipidemia Diabetes Hypertension Erectile dysfunction Surgical History S/P tonsillectomy H/O knee surgery Family History Mother , 72 Diabetes Father , 68 Stroke Social History Smoking and tobacco/nicotine status: never used tobacco/nicotine Alcohol intake: never Substance/Drug Use: never Marital status: Current occupational status: retired Physical Exam Const: COMMON NORMALS: no acute distress GENERAL APPEARANCE: cooperative and comfortable ORIENTATION/CONSCIOUSNESS: Yes awake, Yes oriented to person, Yes oriented to place and Yes oriented to time HENMT: COMMON NORMALS: normocephalic, atraumatic and hearing grossly normal bilaterally HEAD & SCALP: normocephalic and atraumatic Resp: COMMON NORMALS: normal respiratory effort, No retractions, No use of accessory muscles and clear to auscultation bilaterally AUSCULTATION: clear to auscultation bilaterally Cardio: COMMON NORMALS: regular rate, regular rhythm and No murmurs present (Cardio) RATE: regular rate RHYTHM: regular rhythm GI: COMMON NORMALS: Soft to palpation and No hepatosplenomegaly present AUSCULTATION: Yes normoactive bowel sounds PALPATION: Yes Soft to palpation, No Tenderness to palpation present (GI), No Guarding due to palpation present (GI) and Yes No hepatosplenomegaly present Extremity: COMMON NORMALS: normal to inspection, capillary refill normal, no clubbing, cyanosis or edema, no calf tenderness and no pedal edema Neuro: SENSORIUM/ORIENTATION: Yes oriented to person, Yes oriented to place and Yes oriented to time OTHER: No focal neurologic deficits noted geriatrician strength equal bilaterally no facial asymmetry no ataxia in the extremities. Sensations normal Skin: COMMON NORMALS: no rashes or lesions noted GENERAL SKIN EXAM: no rashes or lesions noted Course Vital Signs: Vital signs: Vital Signs Temperature 97.9 F 10/09/24 11:27 Pulse Rate 64 10/09/24 13:21 Respiratory Rate 18 10/09/24 11:27 Blood Pressure 129/65 10/09/24 13:21 Pulse Oximetry 99 10/09/24 13:21 Oxygen Delivery Me thod Room Air 10/09/24 12:30 MDM - Weakness Medical Decision Making CT head completed. No acute findings. Other testing planned however patient did not wish to stay for. He would prefer to have done as an outpatient at this point. Discussed with him he declined to wait to have it completed. He states at this point he feels fine when he rather go home follow-up as an outpatient. Encouraged him to follow-up with his primary care doctor. Repeat neurological exam does not show any acute findings on stroke he does have some difficulty with speech the past that was present previously Lab Data 10/09/24 12:17 10/09/24 12:[address] 10/09/24 11:39 IMPRESSION: 1. No evidence of intracranial hemorrhage or mass effect. 2. No acute intracranial findings. Laboratory Results WBC 5.79 10^3/uL (3.29-11.43) 10/09/24 12:17 RBC 3.88 10^6/uL (3.85-5.65) 10/09/24 12:17 Hgb 11.90 g/dL (11.27-16.99) 10/09/24 12:17 Hct 35.6 % (37-53) L 10/09/24 12:17 MCV 91.8 fl (82-101) 10/09/24 12:17 MCH 30.7 pg (27-33) 10/09/24 12:17 MCHC 33.4 g/dL (30-55) 10/09/24 12:17 RDW 13.4 % (12.1-15.1) 10/09/24 12:17 Plt Count 177 10^3/cmm (157-399) 10/09/24 12:17 MPV 10.6 fL (7.4-10.4) H 10/09/24 12:17 Neut % (Auto) 65.6 % 10/09/24 12:17 Lymph % (Auto) 20.9 % 10/09/24 12:17 [place] % (Auto) 11.2 % 10/09/24 12:17 Eos % (Auto) 1.9 % 10/09/24 12:17 Baso % (Auto) 0.2 % 10/09/24 12:17 Neut # (Auto) 3.80 10^3/uL (1.8-7.7) 10/09/24 12:17 Lymph # (Auto) 1.2 10^3/uL (0.8-4.8) 10/09/24 12:17 [place] # (Auto) 0.7 10^3/uL (0.2-0.9) 10/09/24 12:17 Eos # (Auto) 0.1 10^3/uL (0.0-0.8) 10/09/24 12:17 Baso # (Auto) 0.0 10^3/uL (0.0-0.1) 10/09/24 12:17 Nucleated RBC % (auto) 0 % 10/09/24 12:17 Nucleated RBCs # 0.0 /100WBC 10/09/24 12:17 Sodium 136 mmol/L (136-145) 10/09/24 12:17 Potassium 4.3 mmol/L (3.5-5.1) 10/09/24 12:17 Chloride 97 mmol/L (98-107) L 10/09/24 12:17 Carbon Dioxide 27 mmol/L (22-29) 10/09/24 12:17 Anion Gap 16.3 (5-19) 10/09/24 12:17 BUN 34 mg/dL (8-23) H 10/09/24 12:17 Creatinine 1.4 mg/dL (0.7-1.2) H 10/09/24 12:17 GFR Calculation Not Reportable 10/09/24 12:17 Glucose 256 mg/dL (65-115) H 10/09/24 12:17 Calculated Osmolality 298 mOsm/kg (285-295) H 10/09/24 12:17 Calcium 9.2 mg/dL (8.5-10.5) 10/09/24 12:17 Total Bilirubin 0.3 mg/dL (0.15-1.2) 10/09/24 12:17 AST 17 U/L (0-40) 10/09/24 12:17 ALT 14 U/L (0-41) 10/09/24 12:17 Alkaline Phosphatase 50 U/L (40-130) 10/09/24 12:17 Total Protein 6.9 g/dL (6.6-8.7) 10/09/24 12:17 Albumin 3.9 g/dL (3.5-5.2) 10/09/24 12:17 Globulin 3.0 g/dL (1.3-4.6) 10/09/24 12:17 All radiology interpretation(s) finalized by discharge Discharge Plan Discharge Patient Disposition: Home Clinical Impression: CVA, old, speech/language deficit Condition: Stable Prescriptions: New aspirin 81 mg tablet,delayed release (DR/EC) 81 mg PO DAILY Qty: 30 0RF No Action losartan 50 mg tablet 50 mg PO DAILY latanoprost 0.005 % drops 1 drp ophthalmic (eye) DAILY cilostazol 100 mg tablet 100 mg PO BID isosorbide mononitrate 30 mg tablet extended release 24 hr 30 mg PO DAILY clopidogrel 75 mg tablet 75 mg PO DAILY omeprazole 40 mg capsule,delayed release(DR/EC) 40 mg PO DAILY furosemide 80 mg tablet 80 mg PO DAILY glimepiride 4 mg tablet 8 mg PO DAILY brimonidine 0.2 % drops 1 drp ophthalmic (eye) DAILY nitroglycerin 0.4 mg tablet, sublingual 0.4 mg sublingual Q5M PRN (Reason: Chest Pain) gabapentin 300 mg capsule 300 mg PO TID pioglitazone 30 mg tablet 30 mg PO DAILY insulin lispro 100 unit/mL insulin pen See Rx Instructions .ROUTE .COMPLEX Rx Instructions: INJECT UNDER THE SKIN DIRECTED AT LUNCH TIME MEAL ONLY, 150-200 2 UNITS, 201-250 6 UNITS, 251-300 8 UNITS, 301-350 10 UNITS 351 AND ABOVE 12 UNITS (12 UNITS MAX DAILY) rosuvastatin 40 mg tablet 40 mg PO QPM metoprolol tartrate 25 mg tablet 12.5 mg PO BID insulin glargine [Lantus Solostar U-100 Insulin] 100 unit/mL (3 mL) insulin pen 50 unit SUBCUT DAILY Discharge Orders: Discharge ED (Routine); Ordered 10/09/24 Ordered By: Leander Edmonds Referrals: George Hylton MD [Primary Care Provider, Family Practice] Discharge Diet: Usual diet Discharge Activity: Increase activity as tolerated Patient Instructions: Opioid Safety, Pain Management Activity Restrictions/Additional Instructions: Thank you for choosing [facility] for your healthcare needs today. It is very important that you follow up as instructed or that you return to the Emergency Department should you have concerns or if your condition changes or worsens in any way. You were seen in the emergency room with reports of a new heart murmur as well as new onset of strokes that is approximately 2 weeks old. We did do a CT of your head did not show anything acute. You had expressed wish to go and complete the rest of the workup as an outpatient. Will have case management make arrangements for you to have a CTA of the head and neck as well as a ultrasound of your heart. Will also set up follow-up with neurology. Print Language: Surinamese Coding Level of Care Code ED Graphic Art Sales Representative for Chg Fwd Related Data Home Medications ?Medication ?Instructions ?Recorded ?Confirmed brimonidine 0.2 % eye drops 1 drp ophthalmic (eye) DAILY 10/09/24 10/09/24 cilostazol 100 mg tablet 100 mg PO BID 10/09/24 10/09/24 clopidogrel 75 mg tablet 75 mg PO DAILY 10/09/24 10/09/24 furosemide 80 mg tablet 80 mg PO DAILY 10/09/24 10/09/24 gabapentin 300 mg capsule 300 mg PO TID 10/09/24 10/09/24 glimepiride 4 mg tablet 8 mg PO DAILY 10/09/24 10/09/24 insulin glargine 100 unit/mL (3 50 unit SUBCUT DAILY 10/09/24 10/09/24 mL) subcutaneous pen (Lantus Solostar U-100 Insulin) insulin lispro 100 unit/mL See Rx Instructions .Route .COMPLEX 10/09/24 10/09/24 subcutaneous pen isosorbide mononitrate 30 mg 30 mg PO DAILY 10/09/24 10/09/24 tablet,extended release 24 hr latanoprost 0.005 % eye drops 1 drp ophthalmic (eye) DAILY 10/09/24 10/09/24 losartan 50 mg tablet 50 mg PO DAILY 10/09/24 10/09/24 metoprolol tartrate 25 mg tablet 12.5 mg PO BID 10/09/24 10/09/24 nitroglycerin 0.4 mg sublingual 0.4 mg sublingual Q5M PRN Chest 10/09/24 10/09/24 tablet Pain omeprazole 40 mg capsule,delayed 40 mg PO DAILY 10/09/24 10/09/24 release pioglitazone 30 mg tablet 30 mg PO DAILY 10/09/24 10/09/24 rosuvastatin 40 mg tablet 40 mg PO QPM 10/09/24 10/09/24 Previous Rx's ?Medication ?Instructions ?Recorded aspirin 81 mg tablet,delayed 81 mg PO DAILY #30 tabs 10/09/24 release Allergies Allergy/AdvReac Type Severity Reaction Status Date / Time ibuprofen Allergy Hives Verified 07/16/24 07:39 Sulfa (Sulfonamide Allergy NA Verified 07/16/24 07:39 Antibiotics)
[2024-10-09 12:02] VITALS: BP 137/79; PULSE 64; O2SAT 98
[2024-10-09 12:26] LABS: Basophils % 0.2 %; Eosinophils # 0.1 10^3/uL (0.0-0.8); Eosinophils % 1.9 %; Hematocrit 35.6 % (37-53); Lymphocytes # 1.2 10^3/uL (0.8-4.8); Lymphocytes % 20.9 %; Mean Corpuscular HGB Conc 33.4 g/dL (30-55); Mean Corpuscular Hemoglobin 30.7 pg (27-33); Mean Corpuscular Volume 91.8 fl (82-101); Mean Platelet Volume 10.6 fL (7.4-10.4); Monocytes # 0.7 10^3/uL (0.2-0.9); Monocytes % 11.2 %; Neutrophils % 65.6 %; Nucleated Red Blood Cells % 0 %; Platelet Count 177 10^3/cmm (157-399); Red Blood Count 3.88 10^6/uL (3.85-5.65); Red Cell Distribution Width 13.4 % (12.1-15.1); White Blood Count 5.79 10^3/uL (3.29-11.43)
[2024-10-09 12:30] VITALS: BP 148/90; PULSE 64; O2SAT 100
[2024-10-09 12:51] LABS: Alanine Aminotransferase 14 U/L (0-41); Albumin Level 3.9 g/dL (3.5-5.2); Alkaline Phosphatase 50 U/L (40-130); Anion Gap 16.3 (5-19); Aspartate Amino Transferase 17 U/L (0-40); Blood Urea Nitrogen 34 mg/dL (8-23); Calcium 9.2 mg/dL (8.5-10.5); Carbon Dioxide 27 mmol/L (22-29); Chloride 97 mmol/L (98-107); Creatinine Clr Calc Pharmacy 47.5862; Glucose 256 mg/dL (65-115); Osmolality Calculated 298 mOsm/kg (285-295); Potassium 4.3 mmol/L (3.5-5.1); Sodium 136 mmol/L (136-145); Total Bilirubin 0.3 mg/dL (0.15-1.2); Total Protein 6.9 g/dL (6.6-8.7)
[2024-10-09 13:21] VITALS: BP 129/65; PULSE 64; O2SAT 99
--- NOTE | 2024-10-09 15:44 | DCPLANNER ---
Message sent to Neurology for follow up
--- NOTE | 2024-10-10 07:35 | DCPLANNER ---
messaged heart care for er f/u and faxed scheduling an outpatient cta neck/head and echo order
== END 2024-10-09 13:24 | disposition home or self-care (01) ==
PROVIDERS: Emergency Provider Family Medicine; PCP Family Medicine
DX: F80.9 Developmental disorder of speech and language, unspecified (principal); Z79.4 Long term (current) use of insulin; Z86.73 Personal history of transient ischemic attack (TIA), and cerebral infarction without residual deficits; E78.5 Hyperlipidemia, unspecified; E11.9 Type 2 diabetes mellitus without complications; I10 Essential (primary) hypertension
CPT/HCPCS: 36415; 70450; 80053; 85025; 93005; 99284

== ENCOUNTER → 2024-10-15 07:14 | Outpatient (BNVA) | payer MEDICARE, SELFPAY | PROVIDERS: PCP Family Medicine; Visit Provider Podiatrist Foot & Ankle Surgery | DX: E11.42 Type 2 diabetes mellitus with diabetic polyneuropathy (principal); L60.3 Nail dystrophy; I73.9 Peripheral vascular disease, unspecified; M21.371 Foot drop, right foot; I69.328 Other speech and language deficits following cerebral infarction | CPT/HCPCS: 11721; 99213 ==

== ENCOUNTER 2024-10-29 12:46 | Outpatient (CLI) | payer MEDICARE, SELFPAY ==
--- NOTE | 2024-10-29 12:49 | CT_ITS ---
WS: [id number] CTA HEAD AND NECK TECHNIQUE: Contrast enhanced CTA of the head and neck with coronal and sagittal reformatted images and maximum intensity projection (MIP) images. NASCET criteria utilized. CLINICAL INFORMATION: PERSONAL HX OF TIA/SLURRED SPEACH COMPARISON: None. DLP: 1192.[address] scans at [facility] use at least one of these dose optimization techniques: automated exposure control; mA and/or kV adjustment per patient size (includes targeted exams where dose is matched to clinical indication); or iterative reconstruction. FINDINGS: RIGHT: Moderate calcified atheromatous plaque RIGHT carotid bulb. RIGHT ICA stenosis measures 63%. RIGHT ICA is patent to the skull base. LEFT: Calcified atheromatous plaque LEFT carotid bulb extending into the ICA. LEFT ICA stenosis measures 45%. LEFT ICA is patent to the skull base. RIGHT dominant vertebral artery. 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 Reconstitution of the distal LEFT vertebral artery. Proximal basilar artery is patent. INTRACRANIAL CTA: Calcified cavernous carotid arteries. Normal vascularity to the GLENN territory. Normal vascularity to the MCA territory bilaterally. No evidence of proximal flow-limiting stenosis. Basilar artery is patent. Normal vascularity to the IMPREGNATOR [place] DRIER territory bilaterally. Aortic arch calcification. Multinodular thyroid. Proximal subclavian arteries are patent. Calcification of the origin of the great vessels. Moderate spondylitic changes cervical spine. CT/CT angio headneck* [id number] IMPRESSION: 1. RIGHT ICA stenosis measures 63%. 2. LEFT ICA stenosis measures 45%. 3. Moderate calcified atherosclerotic plaque both carotid bulbs. 4. RIGHT dominant vertebral artery. LEFT vertebral artery is occluded just dis annika to the origin. Reconstitution of the intracranial segment. 5. No proximal flow-limiting intracranial stenosis.
[2024-10-29] MEDS: iohexol 350 mg/mL 500 mL Btl (per mL) IV (13:43)
== END 2024-10-29 12:47 | disposition home or self-care (01) ==
LOC: RAD 12:47
PROVIDERS: PCP Family Medicine; Visit Provider Family Medicine
DX: Z86.73 Personal history of transient ischemic attack (TIA), and cerebral infarction without residual deficits (principal); R47.81 Slurred speech; M62.81 Muscle weakness (generalized); I65.23 Occlusion and stenosis of bilateral carotid arteries; I65.02 Occlusion and stenosis of left vertebral artery; R93.89 Abnormal findings on diagnostic imaging of other specified body structures; I70.0 Atherosclerosis of aorta; E04.2 Nontoxic multinodular goiter; I70.90 Unspecified atherosclerosis; M47.892 Other spondylosis, cervical region
CPT/HCPCS: 70496; 70498

== ENCOUNTER → 2024-11-18 11:22 | Outpatient (BNVA) | payer MEDICARE, SELFPAY | PROVIDERS: PCP Family Medicine; Visit Provider Internal Medicine | DX: R42 Dizziness and giddiness (principal); I63.9 Cerebral infarction, unspecified; I49.8 Other specified cardiac arrhythmias; I49.3 Ventricular premature depolarization; I49.1 Atrial premature depolarization; I47.10 Supraventricular tachycardia, unspecified | CPT/HCPCS: 93242 ==

== ENCOUNTER 2024-11-29 14:50 | Outpatient (CLI) | payer MEDICARE, SELFPAY ==
--- NOTE | 2024-11-29 15:00 | USCV_ITS ---
Damian Fonseca Age: 79 Gender: M : 1945 Exam Date: 11/29/2024 15:26 Ordering Phys: Leander Edmonds DO Technologist: CLAUDE Exam Location[place] [facility] [place] Indication: CVA BP: 157 / 72 HR: 62 Rhythm: Sinus Technical Quality: Adequate MEASUREMENTS (Male / Female) Normal Values 2D ECHO LV Diastolic Diameter PLAX 5.3 cm 4.2 - 5.9 / 3.9 - 5.3 cm IVS Diastolic Thickness 1.0 cm 0.6 - 1.0 / 0.6 - 0.9 cm IVS Systolic Thickness 1.6 cm LVPW Diastolic Thickness 0.9 cm 0.6 - 1.0 / 0.6 - 0.9 cm LVPW Systolic Thickness 1.6 cm LVOT Diameter 1.9 cm LV Ejection Fraction 2D Teich 60.7 % LV Ejection Fraction MOD 4C 57.7 % LV Ejection Fraction MOD 2C 55.0 % LV Ejection Fraction 2C AL 56.4 % LA Diameter 3.2 cm RA Systolic Volume 4C AL 39.5 ml RA Systolic Volume 4C MOD 38.6 ml LA Sys Volume AL 33.7 cm cubed LA Sys Volume Index AL 16.2 cm cubed/m squared Aorta at Sinotubular Diameter 2.7 cm IVC Diameter 2.5 cm M-MODE LA Ao Ratio MM 1.4 AV Cusp Separation MM 1.8 cm DOPPLER AV Peak Velocity 142.0 cm/s LVOT Peak Velocity 96.0 cm/s AV Area Cont Eq vti 2.1 cm squared AV Area Cont Eq pk 2.0 cm squared MV Peak Velocity 102.0 cm/s MV Area PHT 2.6 cm squared Mitral E to A Ratio 0.8 TR Peak Velocity 104.0 cm/s TR Peak Gradient 4.3 mmHg TV Peak E Velocity 101.0 cm/s PV Peak Velocity 111.0 cm/s FINDINGS Left Ventricle Left ventricle is normal in size. LV systolic function is normal with EF of 55-60%. No regional wall abnormalities are seen. Grade 1 diastolic dysfunction. Right Ventricle Normal in size and function Right Atrium Normal in size Left Atrium Normal in size Mitral Valve Structurally normal mitral valve. Trace mitral regurgitation Aortic Valve Grossly normal. No significant stenosis or regurgitation Tricuspid Valve Insufficient TR jet to calculate RVSP Pulmonic Valve Not well visualized Pericardium Normal Aorta Normal in size IVC Appears to be dilated CONCLUSIONS LV systolic function is normal with EF of 55-60% Grade 1 diastolic dysfunction Trace mitral regurgitation Anthony Mathew MD (Electronically Signed) Final Date: 13 December 2024 14:03 S
== END 2024-11-29 14:51 | disposition home or self-care (01) ==
LOC: RAD 14:52
PROVIDERS: PCP Family Medicine; Visit Provider Family Medicine
DX: Z86.73 Personal history of transient ischemic attack (TIA), and cerebral infarction without residual deficits (principal); R47.81 Slurred speech; M62.81 Muscle weakness (generalized); R93.1 Abnormal findings on diagnostic imaging of heart and coronary circulation
CPT/HCPCS: 93306

== ENCOUNTER → 2025-01-14 07:10 | Outpatient (BNVA) | payer MEDICARE, SELFPAY | PROVIDERS: PCP Family Medicine; Visit Provider Podiatrist Foot & Ankle Surgery | DX: E11.8 Type 2 diabetes mellitus with unspecified complications (principal); L60.3 Nail dystrophy; E11.42 Type 2 diabetes mellitus with diabetic polyneuropathy; I73.9 Peripheral vascular disease, unspecified; M21.371 Foot drop, right foot; I69.328 Other speech and language deficits following cerebral infarction; L60.0 Ingrowing nail; Z79.4 Long term (current) use of insulin | CPT/HCPCS: 11721; 99213 ==

== ENCOUNTER → 2025-03-17 07:28 | Outpatient (BNVA) | payer MEDICARE, SELFPAY | PROVIDERS: PCP Family Medicine; Visit Provider Podiatrist Foot & Ankle Surgery | DX: E11.42 Type 2 diabetes mellitus with diabetic polyneuropathy (principal); L60.3 Nail dystrophy; E11.8 Type 2 diabetes mellitus with unspecified complications; I73.9 Peripheral vascular disease, unspecified; M21.371 Foot drop, right foot; I69.328 Other speech and language deficits following cerebral infarction; Z79.4 Long term (current) use of insulin | CPT/HCPCS: 11721 ==